=== PATIENT | male | born 1945 | race Caucasian/White ===

== ENCOUNTER 2019-11-08 08:40 | Outpatient (CLI) | payer MEDICARE ==
--- NOTE | 2019-11-08 10:02 | XRAY Report ---
Reason: ACUTE ON CHRONIC KNEE PAIN Procedure Date: 11/08/2019 Accession Number: [id number] / [id number] Procedure: XRS - Knee 3 View LT CPT Code: Final Report FULL RESULT: EXAM: LEFT KNEE RADIOGRAPHY EXAM DATE: 11/08/2019 08:58 AM. CLINICAL HISTORY: Acute on chronic knee pain. COMPARISON: None. TECHNIQUE: 3 views. FINDINGS: Bones: No fracture or suspicious bone lesions detected. Minimal osteophytic spurring at the dorsum of the patella. Joints: Mild narrowing of the medial compartment of the knee. Trace chondrocalcinosis suggested in the lateral compartment. Small suprapatellar joint effusion. The patellofemoral articulation appears within normal limits. Soft Tissues: No subcutaneous radiopaque foreign bodies detected. No abnormal skin thickening detected anterior to the knee. IMPRESSION: Mild degenerative changes noted of the knee. RADIA
== END 2019-11-08 08:41 | disposition home or self-care (01) ==
LOC: DI.S 08:40
PROVIDERS: ATTEND Family Medicine
DX: M17.12 Unilateral primary osteoarthritis, left knee (principal)

== ENCOUNTER 2019-12-05 09:21 | Outpatient (CLI) | payer MEDICARE ==
--- NOTE | 2019-12-05 15:29 | MRI Report ---
Reason: INTERNAL DERANGEMENT OF LT KNEE Procedure Date: 12/05/2019 Accession Number: [id number] / [id number] Procedure: MRI - Knee LT W/O CPT Code: Final Report FULL RESULT: EXAM: LEFT KNEE MRI WITHOUT CONTRAST EXAM DATE: 12/05/2019 10:01 AM. CLINICAL HISTORY: Internal derangement of left knee. COMPARISON: KNEE 3 VIEW LT 11/08/2019 9:06 AM. TECHNIQUE: Multiplanar, multisequence T1-weighted and fluid-sensitive sequences of the knee without contrast. Other: None. FINDINGS: Bones: There is a small amount of nonspecific increased T2 signal in the distal femur. No fracture lines. Articular Cartilage: Medial compartment showed some broad areas of grade III chondromalacia at the weightbearing aspect of the medial femoral condyle and medial tibial plateau. Medial Meniscus: Medial meniscus shows undersurface degenerative tear of the mid body and posterior horn. No displaced fragment. Lateral Meniscus: The lateral meniscus is intact. Cruciate Ligaments: The anterior and posterior cruciate ligaments are intact. Collateral Ligaments: The medial collateral and lateral collateral ligamentous structures are intact. Tendons: The quadriceps, patellar, semimembranosus, and popliteus tendons are unremarkable. Musculature: No edema or fatty atrophy. Other: Small joint effusion. No popliteal cyst. No loose bodies. The medial and lateral retinacula are intact. The subcutaneous tissues and fat pads are unremarkable. IMPRESSION: 1. Small amount of increased T2 signal is seen in the distal femur which is nonspecific, no fracture lines. This may be secondary to overuse. 2. Undersurface degenerative tear mid body and posterior horn medial meniscus. Small amount of grade III chondromalacia on both sides weightbearing aspect of the medial compartment. 3. Lateral compartment, cruciates and collaterals appear normal. Small joint effusion. No popliteal cyst. RADIA
== END 2019-12-05 09:22 | disposition home or self-care (01) ==
LOC: DI 09:21
PROVIDERS: ATTEND Family Medicine
DX: S83.222A Peripheral tear of medial meniscus, current injury, left knee, initial encounter (principal); M94.262 Chondromalacia, left knee; M25.462 Effusion, left knee

== ENCOUNTER 2020-03-30 14:49 | Outpatient (CLI) | payer MEDICARE | END 2020-03-30 14:50 | disposition home or self-care (01) | LOC: LAB.S 14:49 | PROVIDERS: ATTEND Ophthalmology | DX: Z01.812 Encounter for preprocedural laboratory examination (principal); H25.12 Age-related nuclear cataract, left eye; Z20.828 Contact with and (suspected) exposure to other viral communicable diseases | CPT/HCPCS: 81599 ==

== ENCOUNTER 2020-04-02 06:19 | Day surgery (SDC) | payer MEDICARE ==
[2020-04-02] MEDS ORDERED: KETOROLAC 0.45% OPHTH DROPS ONE (06:20)
[2020-04-02] MEDS ORDERED: PROPARACAINE 0.5% OPHTH DROPS 15 ML ONE (06:20)
[2020-04-02] MEDS ORDERED: CYCLOPENTOLATE 1% OPHTH DROPS 2 ML ONE (06:20)
[2020-04-02] MEDS ORDERED: PHENYLEPHRINE 2.5% OPHTH 2 ML DROPS ONE (06:20)
[2020-04-02] MEDS ORDERED: MIDAZOLAM 2 MG/2 ML VIAL IVP ONE (06:20)
[2020-04-02] MEDS ORDERED: CYCLOPENTOLATE 1% OPHTH DROPS 2 ML LEFTEYE ONE (06:40)
[2020-04-02] MEDS ORDERED: KETOROLAC 0.45% OPHTH DROPS LEFTEYE ONE (06:40)
[2020-04-02] MEDS ORDERED: PROPARACAINE 0.5% OPHTH DROPS 15 ML LEFTEYE ONE (06:40)
[2020-04-02] MEDS ORDERED: PHENYLEPHRINE 2.5% OPHTH 2 ML DROPS LEFTEYE ONE (06:40)
[2020-04-02] MEDS ORDERED: LACTATED RINGERS 1,000 ML IV ONE (06:46)
[2020-04-02] MEDS ORDERED: VANCOMYCIN OPHTHALMI 8MG/0.8ML 8 MG/0.8 ML SYRINGE IO ONE ×2 (06:58→07:35)
[2020-04-02] MEDS ORDERED: TRIAMCIN/MOXIFLOX OPHTHALMIC 0.6 ML VIAL IO ONE ×2 (06:58→07:35)
[2020-04-02] MEDS ORDERED: EPINEPHrine 1 MG/ML AMP ONE (06:58)
[2020-04-02] MEDS ORDERED: timoloL maleate 0.5% OPHTH DROPS (10ML) ONE (06:58)
[2020-04-02] MEDS ORDERED: BRIMONIDINE 0.2% OPHTH DROPS 5 ML ONE (06:58)
[2020-04-02] MEDS ORDERED: BSS/LIDOCAINE/EPINEPHRINE 1 ML SYRINGE ONE (06:58)
--- NOTE | 2020-04-02 07:17 | ANESTHESIA ---
Pre-Anesthesia VS, & Labs - Diagnosis Left eye cataract - Procedure Left PHACO Vital Signs: Temp Pulse Resp BP Pulse Ox 36.6 C 76 16 152/66 H 98 04/02/20 06:31 04/02/20 06:31 04/02/20 06:31 04/02/20 06:31 04/02/20 06:31 Height 6 ft 3 in Weight (kg) 96.04 kg - NPO >8 hours - Lab Results Current Lab Results: Laboratory Tests 04/02/20 06:42: POC Whole Bld Glucose 152 H Lab results reviewed: Yes Home Medications and Allergies Home Medications: Ambulatory Orders Atorvastatin [Lipitor] 10 04/01/20 Ergocalciferol (Vitamin D2) [Vitamin D2] 1,250 mcg PO 04/01/20 Glipizide [Glipizide Xl] 5 mg PO 04/01/20 Losartan Potassium 25 mg PO 04/01/20 Metformin HCl [Fortamet] 1,000 mg PO BID 04/01/20 Thiamine [Vitamin B-1] 100 mg PO ONCE 04/01/20 Atorvastatin [Lipitor] 10 04/01/20 Ergocalciferol (Vitamin D2) [Vitamin D2] 1,250 mcg PO 04/01/20 Glipizide [Glipizide Xl] 5 mg PO 04/01/20 Losartan Potassium 25 mg PO 04/01/20 Metformin HCl [Fortamet] 1,000 mg PO BID 04/01/20 Thiamine [Vitamin B-1] 100 mg PO ONCE 04/01/20 Allergies/Adverse Reactions: Allergies Allergy/AdvReac Type Severity Reaction Status Date / Time No Known Drug Allergies Allergy Verified 04/01/20 09:02 Anes History & Medical History - Anesthetic History Anesthesia Complications: reports: No previous complications Family history of Anesthesia Complications: Denies Family history of Malignant Hyperthermia: Denies - Medical History Cardiovascular: reports: Hypertension, High cholesterol Pulmonary: reports: None Gastrointestinal: reports: None Urinary: reports: None Neuro: reports: None Musculoskeletal: reports: None Endocrine/Autoimmune: reports: Type 2 diabetes Skin: reports: None Psychosocial: reports: No issues indicated - Surgical History General: Colonoscopy Results - EKG Results EKG Comparison: Normal EKG Exam General: Oriented x3, Cooperative Dental: WNL Mouth Openin Fingerbreadth Neck Mobility: Normal Mallampati classification: II Thyromental Distance: 4-6 cm Respiratory: Lungs clear Cardiovascular: Regular rate Abdomen: Normal bowel sounds Extremities: No clubbing Neurological: Normal gait Mental/Cognitive Status: Alert/Oriented X3 Cognitive Status: Within normal limits Plan Anesthesia Type: MAC Consent for Procedure(s) Verified and Reviewed: Yes Code Status: Attempt Resuscitation ASA classification: 2-Mild systemic disease Is this case an emergency?: No
[2020-04-02] MEDS ORDERED: BRIMONIDINE 0.2% OPHTH DROPS 5 ML OPTH ONE (07:33)
[2020-04-02] MEDS ORDERED: EPINEPHrine 1 MG/ML AMP IVP ONE (07:33)
[2020-04-02] MEDS ORDERED: BSS/LIDOCAINE/EPINEPHRINE 1 ML SYRINGE IO ONE (07:34)
[2020-04-02] MEDS ORDERED: CHONDR SULF/HYALURONATE SYRINGE IO ONE (07:34)
[2020-04-02] MEDS ORDERED: TIMOLOL 0.5% OPHTH DROPS OPTH ONE (07:34)
[2020-04-02 08:10] VITALS: BP 124/71
--- NOTE | 2020-04-02 10:18 | OPERATIVE REPORT ---
DATE OF SERVICE: 04/02/2020 Physician: Curt Blanca MD PREOPERATIVE DIAGNOSIS: Visually significant cataract, left eye. This was his first cataract surger y. POSTOPERATIVE DIAGNOSIS: Visually significant cataract, left eye. This was his first cataract surge ry. DESCRIPTION OF PROCEDURE: Phacoemulsification with posterior chamber intraocular lens implant, left eye. SURGEON: Curt Blanca MD ANESTHESIA: Monitored anesthesia care. COMPLICATIONS: None. OPERATIVE INDICATIONS: This is a 75-year-old man with progressive vision loss in the left eye due to 3+ nuclear sclerotic cataract. Best corrected visual acuity was 20/30, with glare to 20/125 in the left eye. Indications for surgery were overall decrease in vision, difficulty seeing words on a comp uter screen, difficulty reading, difficulty seeing words, closed caption or game scores on TV and dec reased acuity with firearms. He was consented at length concerning risks and benefits of cataract north rgery, after which he expressed a desire to proceed with surgery. OPERATIVE PROCEDURE: Patient was taken to OR #3 and placed under monitored anesthesia care. Surgica l timeout was conducted confirming correct patient, correct procedure, and correct surgical site. He was given topical anesthesia, and prepped and draped in the usual sterile fashion. The eye was ente red at the 6 and 3 o'clock positions. Intracameral Shugarcaine was injected into the anterior chambe r, followed by Viscoat. A continuous-tear curvilinear capsulorrhexis was performed. The nucleus was hydrodissected and phacoemulsified. The cortex was evacuated using automated infusion and aspiratio n. Provisc was injected in the capsular bag, and a 22.0 diopter intraocular lens inserted in the bag . Infusion and aspiration was used to evacuate the viscoelastic materials. The eye was inflated to physiologic pressure using balanced salt solution and found to be watertight. Approximately 0.25 mL of a mixture of triamcinolone and moxifloxacin was injected transsclerally into the vitreous in the i nferotemporal quadrant. An additional 0.55 mL of a mixture of triamcinolone, moxifloxacin and vancom ycin was injected subconjunctivally in the superior quadrant for infection and inflammation prophylax is. Wound integrity was checked with Weck-Danielle sponges. Patient was taken from the operating room in good condition and given postoperative instructions. TD: 04/02/2020 07:54
== END 2020-04-02 06:20 | disposition home or self-care (01) ==
LOC: SDS 06:19
PROVIDERS: ATTEND Ophthalmology
DX: E11.36 Type 2 diabetes mellitus with diabetic cataract (principal); H25.12 Age-related nuclear cataract, left eye; Z79.84 Long term (current) use of oral hypoglycemic drugs; I10 Essential (primary) hypertension
CPT/HCPCS: 66984; A9270; J3490; J7120; V2632